=== PATIENT | male | born 1930 | race Caucasian/White ===

== ENCOUNTER 2017-01-19 12:32 | Observation (INO) | payer OTHER ==
[~2017-01-19] VITALS: Ht 167.6 cm; Wt 95.3 kg
[~2017-01-19 12:32] MED LIST: ACID CONTROL150 MG PO; AMLODIPINE BESY10 MG PO; AMLODIPINE BESYL5 MG PO; ANTIVERT12.5 MG PO; ANTIVERT25 MG PO; ARICEPT10 MG PO; ASPIR-LOW81 MG PO; ASPIRIN81 M1 PO; ATORVASTATIN CA40 MG PO; ATORVASTATIN CA80 MG PO; AUGMENTIN875 MG PO; BENZTROPINE ME0.5 MG PO; CIPRODEX OTIC7.5 ML RIGHT EAR; CLOPIDOGREL75 MG PO; COGENTIN0.5 MG PO; Colace PO; DAILY VITAMIN1 EAC8 PO; DOCUSATE SODIU100 MG PO; ENALAPRIL MALEA10 MG PO; ENALAPRIL MALEA20 M1 PO; IMDUR60 MG PO; ISOSORBIDE MONO60 MG PO; LIPITOR40 MG PO; LO-DOSE ASPIRIN81 M1 PO; LOPRESSOR25 MG PO; LOW DOSE ASPIRI81 M1 PO; METOPROLOL TART50 MG PO; MULTIVITAMIN1 EAC1 PO; MULTIVITAMIN1 EAC2 PO; NAMENDA5 MG PO; NITROSTAT0.4 MG SL; NORCO 5/3251 TABLET PO; ONE-A-DAY ESSE1 EAC1 PO; PLAVIX75 MG PO; RANITIDINE HCL150 M1 PO; SIMVASTATIN80 M1 PO; TERAZOSIN HCL2 MG PO; TYLENOL REGULA325 MG PO; VASOTEC20 MG PO; Xanax PO; ZANTAC150 MG PO
[2017-01-19 13:32] LABS: EOSINOPHIL (%) 2.6 % (0-5); EOSINOPHIL COUNT 0.2 K/uL (0-0.3); IMMATURE GRANULOCYTE (%) 0.4 % (0.0-0.7); INSTRUMENT ABS NEUTROPHIL CT 5.8 K/uL; LYMPHOCYTE COUNT 1.7 K/uL (1.0-2.8); MCH 31.1 PG (29.0-34.0); MCV 94.1 FL (86-99); MEAN PLAT.VOLUME 10.3 uM^3 (9.0-12.4); MONOCYTE (%) 13.3 % (3-12); MONOCYTE COUNT 1.2 K/uL (0-0.8); NEUTROPHIL (%) 64.7 % (45-76); NEUTROPHIL COUNT 5.8 K/uL (1.8-6.4); PLATELET COUNT 156 K/uL (156-360); RBC DIS.WIDTH-CV 12.6 % (11.8-14.6); RBC DIS.WIDTH-SD 43.7 % (39-53); RED BLOOD COUNT 4.57 M/uL (4.00-5.50); WHITE BLOOD COUNT 8.9 K/uL (4.1-10.2)
[2017-01-19 13:45] LABS: CHLORIDE 109 mEq/L (99-109); POTASSIUM 4.8 mEq/L (3.7-5.4); SODIUM 142 mEq/L (136-147)
[2017-01-19 13:47] LABS: GLUCOSE 112 mg/dL (70-99)
[2017-01-19 13:48] LABS: ANION GAP 8 MEQ/L (2-14)
[2017-01-19 13:50] LABS: D-DIMER ELISA > 4.00 mg/L FEU (< 0.57)
[2017-01-19 13:51] LABS: GFR ESTIMATE (CALCULATED) 44 mL/min/
[2017-01-19 13:52] LABS: UREA NITROGEN (BUN) 20 mg/dL (9-23)
[2017-01-19 13:58] LABS: TROP-I INTERPRETATION NEGATIVE; TROPONIN-I 0.03 ng/mL (0.0-0.30)
[2017-01-19 21:00] VITALS: BP 178/94
[2017-01-19 21:46] LABS: TROP-I INTERPRETATION NEGATIVE; TROPONIN-I 0.04 ng/mL (0.0-0.30)
[2017-01-19 23:49] VITALS: BP 130/60
[2017-01-20 04:58] VITALS: BP 142/65
[2017-01-20 05:19] LABS: HEMATOCRIT 40.9 % (38.0-50.0); MCH 31.2 PG (29.0-34.0); MCHC 33.5 G/DL (30.0-36.0); MCV 93.2 FL (86-99); MEAN PLAT.VOLUME 10.4 uM^3 (9.0-12.4); PLATELET COUNT 152 K/uL (156-360); RBC DIS.WIDTH-CV 12.8 % (11.8-14.6); RBC DIS.WIDTH-SD 43.5 % (39-53); RED BLOOD COUNT 4.39 M/uL (4.00-5.50); WHITE BLOOD COUNT 8.7 K/uL (4.1-10.2)
[2017-01-20 05:39] LABS: TROP-I INTERPRETATION NEGATIVE; TROPONIN-I 0.04 ng/mL (0.0-0.30)
[2017-01-20 05:43] LABS: ALKALINE PHOSPHATASE 53 IU/L (3-129); ANION GAP 5 MEQ/L (2-14); CHLORIDE 105 MEQ/L (99-109); GFR ESTIMATE (CALCULATED) 47 mL/min/; GLUCOSE 104 mg/dL (70-99); HDL CHOLESTEROL 27 MG/DL (Desirable>=40); LDL CHOLESTEROL 42 mg/dL (Desirable<100); NON-HDL CHOLESTEROL 74 mg/dL (Desirable<160); POTASSIUM 4.3 MEQ/L (3.7-5.4); SAMPLE HEMOLYSIS CHECK 0; SAMPLE ICTERIC CHECK 0; SAMPLE LIPEMIA CHECK 0; SODIUM 139 MEQ/L (136-147); TOTAL CHOLESTEROL 101 mg/dL (Desirable<200); TRIGLYCERIDES 160 MG/DL (Normal: <150); UREA NITROGEN (BUN) 20 mg/dL (9-23)
[2017-01-20 07:39] VITALS: BP 173/88
[2017-01-20 11:34] VITALS: BP 146/77
== END 2017-01-20 13:05 | disposition home or self-care (01) ==
LOC: EME 12:32 → EDOF 16:35 → 5WEST 17:59
PROVIDERS: Emergency Medicine; Internal Medicine
DX: R07.89 Other chest pain (principal); I25.5 Ischemic cardiomyopathy; I25.10 Atherosclerotic heart disease of native coronary artery without angina pectoris; D69.6 Thrombocytopenia, unspecified; K80.20 Calculus of gallbladder without cholecystitis without obstruction; I71.4 Abdominal aortic aneurysm, without rupture; I10 Essential (primary) hypertension; K21.9 Gastro-esophageal reflux disease without esophagitis; E78.5 Hyperlipidemia, unspecified; Z95.1 Presence of aortocoronary bypass graft; E78.00 Pure hypercholesterolemia, unspecified; M19.90 Unspecified osteoarthritis, unspecified site; F03.90 Unspecified dementia, unspecified severity, without behavioral disturbance, psychotic disturbance, mood disturbance, and anxiety
CPT/HCPCS: 71020; 71275; 80048; 80053; 80061; 81003; 83880; 84484; 85025; 85027; 85379; 93005; 99281; 99285; G0378; J1650

== ENCOUNTER 2017-03-09 06:30 | Inpatient (IN) | payer OTHER ==
[~2017-03-09 06:30] MED LIST changes: +BISACODYL5 MG PO; +ONDANSETRON4 MG/2 ML PO; +RANEXA500 MG PO; +SEROQUEL12.5 MG PO
[2017-03-09 06:52] LABS: HEMATOCRIT 25.9 % (38.0-50.0); MCH 31.3 PG (29.0-34.0); MCHC 29.3 G/DL (30.0-36.0); MCV 106.6 FL (86-99); MEAN PLAT.VOLUME 11.2 uM^3 (9.0-12.4); NRBC (%) 0.6 /100 WBC (0-0); PLATELET COUNT 160 K/uL (156-360); RBC DIS.WIDTH-CV 12.8 % (11.8-14.6); RBC DIS.WIDTH-SD 50.1 % (39-53); RED BLOOD COUNT 2.43 M/uL (4.00-5.50); WHITE BLOOD COUNT 11.6 K/uL (4.1-10.2)
[2017-03-09 07:00] LABS: CREATININE 2.2 mg/dL (0.6-1.3); POTASSIUM 5.4 mEq/L (3.7-5.4)
[2017-03-09 07:02] LABS: INTER. NORMALIZED RATIO 1.3
[2017-03-09 07:08] LABS: PTT 60.4 (25-32)
[2017-03-09 07:25] LABS: AMYLASE 82 IU/L (1-118); ANION GAP 27 MEQ/L (2-14); CHLORIDE 110 MEQ/L (99-109); GFR ESTIMATE (CALCULATED) 25 mL/min/; GLUCOSE 263 mg/dL (70-99); LIPASE 88 U/L (1.0-51.0); POTASSIUM 5.6 MEQ/L (3.7-5.4); SAMPLE HEMOLYSIS CHECK 0; SAMPLE ICTERIC CHECK 0; SAMPLE LIPEMIA CHECK 0; SERUM ETHYL ALCOHOL < 10 mg/dL; SODIUM 147 MEQ/L (136-147); UREA NITROGEN (BUN) 50 mg/dL (9-23)
[2017-03-09 07:26] LABS: TROP-I INTERPRETATION NEGATIVE; TROPONIN-I 0.11 ng/mL (0.0-0.30)
[2017-03-09 07:36] LABS: BASE EXCESS -15.2 mEq/L (-3 to +3); BICARBONATE 14.3 mEq/L (22-26); CARBOXY HGB 1.6 % (0-5); COMMENTS - BLOOD GASES A+C+; METHEMOGLOBIN 0.7 % (0-1.5); PCO2 54 mm Hg (35-45); PO2 448 mm Hg (80-100); SITE RR; pH 7.03 (7.35-7.45)
[2017-03-09 07:37] LABS: DEVICE VENT; FI02 100 %; MECHANICAL RATE 16 resp/min; MODE AC; PEEP 5 CM/H20; TIDAL VOLUME 500 ML; TOTAL RESP RATE 16 resp/min
[2017-03-09 07:41] LABS: CREATININE 1.8 mg/dL (0.6-1.3); POTASSIUM 4.7 mEq/L (3.7-5.4)
[2017-03-09 07:48] LABS: ABS NEUTROPHIL COUNT 7.5; BAND NEUTROPHILS 1.7 % (0-8.0); BASOPHILS 0.9 %; BURR CELLS 1+; EOSINOPHIL ABS CT 0; INSTRUMENT ABS NEUTROPHIL CT 7.1 K/uL; MYELOCYTES 1.7 %; PLAT.SUFFICIENCY ADEQUATE; POIKILOCYTOSIS 3+; SEG.NEUTROPHILS 62.6 % (46.0-76.0); SMUDGE CELLS 5.2
== END 2017-03-09 10:13 | DRG 982 ==
LOC: EME → EDBD 06:30 → EDOF 09:02
PROVIDERS: Emergency Medicine; Internal Medicine Pulmonary Disease
DX: K92.2 Gastrointestinal hemorrhage, unspecified (principal); I46.9 Cardiac arrest, cause unspecified; E87.2 Acidosis; Z86.73 Personal history of transient ischemic attack (TIA), and cerebral infarction without residual deficits; I25.2 Old myocardial infarction; Z66 Do not resuscitate
CPT/HCPCS: 36600; 71010; 80047; 80048; 81003; 82150; 82803; 83605; 83690; 84484; 85025; 85610; 85730; 86900; 86901; 86920; 87040; 87070; 87205; 93005; 94002; 99281; 99285; G0480; J0171; J0461; J7050; P9016; P9017